=== PATIENT | female | born 1935 | race Caucasian/White ===

== ENCOUNTER 2018-11-13 14:30 | Inpatient (IN) ==
[2018-11-13 15:38] LABS: Basophils % 0.5 % (0.0-0.8); Eosinophils # 0.3 10*3/uL (0.0-0.87); Eosinophils % 3.6 % (0.00-10.9); Hemoglobin 10.4 GM/DL (12.0-16.0); Immature Granulocytes % 0.5 %; Immature Granulocytes Absolute 0.04 #; Lymphocytes % 12.2 % (21.3-54.2); Mean Corpuscular HGB Conc 32.5 GM/DL (32-36); Mean Corpuscular Volume 102.9 FL (87-102); Mean Platelet Volume 10.1 FL (9.6-12.0); Monocytes % 4.1 % (1.7-12.7); Neutrophils % 79.1 % (38.7-73.9); Platelet Count 205 T/CUMM (130-400); Red Blood Count 3.11 MC/CUMM (3.8-5.5); Red Cell Distribution Width 11.9 % (9.3-17.3); White Blood Count 8.3 T/CUMM (4-12)
[2018-11-13 15:48] LABS: Apearance,Urine CLEAR (Clear); Bacteria,Urine Many /HPF (Few); Bilirubin,Urine Negative (Negative); Blood, Urine Small mg/dL (Negative); Glucose,Urine (UA) Negative (Negative); Hyaline Casts,Urine 1 /LPF (0-3); Ketones,Urine Negative (Negative); Mucus,Urine Occasional /LPF (Occasional); Nitrite,Urine Positive (Negative); Protein,Urine Negative; RBC,Urine 4 /HPF (0-4); Squamous Epithelial Cell,Urine Occasional /HPF (0-10); Urine Color Yellow (Yellow); Urine Specific Gravity 1.014 (1.001-1.035); Urine Urobilinogen < 2.0 EU/DL (0.2-1.0); WBC,Urine 30 /HPF (0-6)
[2018-11-13 15:55] LABS: Alanine Aminotransferase 11 U/L (13-56); Albumin 2.8 G/DL (3.4-5.0); Alkaline Phosphatase 108 U/L (45-117); Aspartate Amino Transferase 15 U/L (0-37); Bilirubin,Total < 0.39 MG/DL (0.2-1.0); Blood Urea Nitrogen 23 MG/DL (7-18); Glucose 112 MG/DL (74-106); Osmolality,Calculated 281.5 MOS/KG (273-304); Total Protein 6.3 G/DL (6.4-8.3)
[2018-11-13] MEDS ORDERED: ACETAMINOPHEN 325 MG TABLET PO PRN (15:59)
[2018-11-13] MEDS ORDERED: ONDANSETRON 4 MG/2 ML VIAL IV PRN (15:59)
[2018-11-13] MEDS ORDERED: PIPERACILLIN/TAZOBACTAM 3,375 MG in SODIUM CHLORIDE 0.9% 100 ML IV STA (16:02)
[2018-11-13] MEDS ORDERED: TEMAZEPAM 15 MG CAPSULE PO PRN (16:22)
[2018-11-13] MEDS: SODIUM CHLORIDE 0.9% 1,000 ML IV SCH (16:25)
[2018-11-13] MEDS: rOPINIRole 0.25 MG TABLET PO SCH (20:47)
[2018-11-13] MEDS: levETIRAcetam 500 MG TABLET PO SCH (20:47)
[2018-11-13] MEDS: QUEtiapine 25 MG TABLET PO SCH (20:47)
[2018-11-13] MEDS: DOCUSATE SODIUM 100 MG CAPSULE PO SCH (20:47)
[2018-11-13] MEDS: MEMANTINE 10 MG TABLET PO SCH (20:47)
[2018-11-13] MEDS: PHENYTOIN ER 100 MG CAPSULE PO SCH (20:47)
[2018-11-13] MEDS: SIMVASTATIN 20 MG TABLET PO SCH (20:47)
[2018-11-13] MEDS: GABAPENTIN 100 MG CAPSULE PO SCH (20:47)
[2018-11-14] MEDS: PIPERACILLIN/TAZOBACTAM 3,375 MG in SODIUM CHLORIDE 0.9% 100 ML IV SCH ×3 (01:08→16:53)
[2018-11-14] MEDS: SODIUM CHLORIDE 0.9% 1,000 ML IV SCH ×4 (02:32→16:53)
[2018-11-14] MEDS: LEVOTHYROXINE 100 MCG TABLET PO SCH (06:13)
[2018-11-14] MEDS: VENLAFAXINE XR 37.5 MG CAPSULE PO SCH (09:06)
[2018-11-14] MEDS: PANTOPRAZOLE 40 MG TABLET PO SCH (09:07)
[2018-11-14] MEDS: DOCUSATE SODIUM 100 MG CAPSULE PO SCH ×2 (09:07→23:05)
[2018-11-14] MEDS: PHENYTOIN ER 100 MG CAPSULE PO SCH ×3 (09:07→23:06)
[2018-11-14] MEDS: LOSARTAN 50 MG TABLET PO SCH (09:07)
[2018-11-14] MEDS: QUEtiapine 25 MG TABLET PO SCH ×2 (09:07→23:07)
[2018-11-14] MEDS: GABAPENTIN 100 MG CAPSULE PO SCH ×2 (09:07→23:06)
[2018-11-14] MEDS: levETIRAcetam 500 MG TABLET PO SCH ×2 (09:07→23:06)
[2018-11-14] MEDS: CLOPIDOGREL 75 MG TABLET PO SCH (09:07)
[2018-11-14] MEDS: ESTROGENS (CONJ) 0.625 MG TABLET PO SCH (09:07)
[2018-11-14] MEDS: MEMANTINE 10 MG TABLET PO SCH ×2 (09:07→23:06)
[2018-11-14] MEDS ORDERED: ZIPRASIDONE 20 MG/1 ML VIAL IM ONE (21:21)
[2018-11-14] MEDS: rOPINIRole 0.25 MG TABLET PO SCH (23:06)
[2018-11-14] MEDS: SIMVASTATIN 20 MG TABLET PO SCH (23:07)
[2018-11-15] MEDS: PIPERACILLIN/TAZOBACTAM 3,375 MG in SODIUM CHLORIDE 0.9% 100 ML IV SCH ×3 (00:06→17:09)
[2018-11-15] MEDS: SODIUM CHLORIDE 0.9% 1,000 ML IV SCH ×3 (00:06→17:09)
[2018-11-15] MEDS: VENLAFAXINE XR 37.5 MG CAPSULE PO SCH (09:30)
[2018-11-15] MEDS: LOSARTAN 50 MG TABLET PO SCH (09:31)
[2018-11-15] MEDS: DOCUSATE SODIUM 100 MG CAPSULE PO SCH ×2 (09:31→21:07)
[2018-11-15] MEDS: GABAPENTIN 100 MG CAPSULE PO SCH ×2 (09:31→21:07)
[2018-11-15] MEDS: QUEtiapine 25 MG TABLET PO SCH ×2 (09:31→21:06)
[2018-11-15] MEDS: CLOPIDOGREL 75 MG TABLET PO SCH (09:31)
[2018-11-15] MEDS: levETIRAcetam 500 MG TABLET PO SCH ×2 (09:31→21:08)
[2018-11-15] MEDS: PANTOPRAZOLE 40 MG TABLET PO SCH (09:31)
[2018-11-15] MEDS: MEMANTINE 10 MG TABLET PO SCH ×2 (09:31→21:07)
[2018-11-15] MEDS: PHENYTOIN ER 100 MG CAPSULE PO SCH ×3 (09:31→21:07)
[2018-11-15] MEDS: ESTROGENS (CONJ) 0.625 MG TABLET PO SCH (09:32)
[2018-11-15] MEDS: LEVOTHYROXINE 100 MCG TABLET PO SCH (09:32)
[2018-11-15] MEDS: rOPINIRole 0.25 MG TABLET PO SCH (21:06)
[2018-11-15] MEDS: SIMVASTATIN 20 MG TABLET PO SCH (21:07)
[2018-11-16] MEDS: PIPERACILLIN/TAZOBACTAM 3,375 MG in SODIUM CHLORIDE 0.9% 100 ML IV SCH ×3 (01:15→16:06)
[2018-11-16] MEDS: SODIUM CHLORIDE 0.9% 1,000 ML IV SCH ×3 (01:51→22:10)
[2018-11-16] MEDS: ZIPRASIDONE 20 MG/1 ML VIAL IM PRN (04:00)
[2018-11-16] MEDS: LEVOTHYROXINE 100 MCG TABLET PO SCH (09:04)
[2018-11-16] MEDS: GABAPENTIN 100 MG CAPSULE PO SCH (09:05)
[2018-11-16] MEDS: VENLAFAXINE XR 37.5 MG CAPSULE PO SCH (09:05)
[2018-11-16] MEDS: MEMANTINE 10 MG TABLET PO SCH (09:05)
[2018-11-16] MEDS: ESTROGENS (CONJ) 0.625 MG TABLET PO SCH (09:05)
[2018-11-16] MEDS: QUEtiapine 25 MG TABLET PO SCH (09:05)
[2018-11-16] MEDS: CLOPIDOGREL 75 MG TABLET PO SCH (09:05)
[2018-11-16] MEDS: levETIRAcetam 500 MG TABLET PO SCH (09:06)
[2018-11-16] MEDS: PHENYTOIN ER 100 MG CAPSULE PO SCH ×2 (09:06→16:05)
[2018-11-16] MEDS: DOCUSATE SODIUM 100 MG CAPSULE PO SCH (09:06)
[2018-11-16] MEDS: LOSARTAN 50 MG TABLET PO SCH (09:06)
[2018-11-16] MEDS: PANTOPRAZOLE 40 MG TABLET PO SCH (09:06)
[2018-11-17] MEDS: PIPERACILLIN/TAZOBACTAM 3,375 MG in SODIUM CHLORIDE 0.9% 100 ML IV SCH ×3 (00:15→15:43)
[2018-11-17] MEDS: PHENYTOIN ER 100 MG CAPSULE PO SCH ×3 (02:29→15:43)
[2018-11-17] MEDS: DOCUSATE SODIUM 100 MG CAPSULE PO SCH ×2 (02:29→08:12)
[2018-11-17] MEDS: rOPINIRole 0.25 MG TABLET PO SCH (02:30)
[2018-11-17] MEDS: levETIRAcetam 500 MG TABLET PO SCH ×2 (02:30→08:12)
[2018-11-17] MEDS: GABAPENTIN 100 MG CAPSULE PO SCH ×2 (02:30→08:12)
[2018-11-17] MEDS: QUEtiapine 25 MG TABLET PO SCH ×2 (02:30→08:13)
[2018-11-17] MEDS: MEMANTINE 10 MG TABLET PO SCH ×2 (02:30→08:12)
[2018-11-17] MEDS: SIMVASTATIN 20 MG TABLET PO SCH (02:31)
[2018-11-17] MEDS: LEVOTHYROXINE 100 MCG TABLET PO SCH (06:30)
[2018-11-17] MEDS: ZIPRASIDONE 20 MG/1 ML VIAL IM PRN ×2 (08:11→18:36)
[2018-11-17] MEDS: VENLAFAXINE XR 37.5 MG CAPSULE PO SCH (08:12)
[2018-11-17] MEDS: LOSARTAN 50 MG TABLET PO SCH (08:12)
[2018-11-17] MEDS: CLOPIDOGREL 75 MG TABLET PO SCH (08:13)
[2018-11-17] MEDS: PANTOPRAZOLE 40 MG TABLET PO SCH (08:13)
[2018-11-17] MEDS: ESTROGENS (CONJ) 0.625 MG TABLET PO SCH (08:13)
[2018-11-17] MEDS: SODIUM CHLORIDE 0.9% 1,000 ML IV SCH ×3 (15:31→15:43)
[2018-11-18] MEDS: DOCUSATE SODIUM 100 MG CAPSULE PO SCH (00:22)
[2018-11-18] MEDS: PHENYTOIN ER 100 MG CAPSULE PO SCH (00:22)
[2018-11-18] MEDS: levETIRAcetam 500 MG TABLET PO SCH (00:23)
[2018-11-18] MEDS: MEMANTINE 10 MG TABLET PO SCH (00:23)
[2018-11-18] MEDS: rOPINIRole 0.25 MG TABLET PO SCH (00:23)
[2018-11-18] MEDS: GABAPENTIN 100 MG CAPSULE PO SCH (00:23)
[2018-11-18] MEDS: QUEtiapine 25 MG TABLET PO SCH (00:23)
[2018-11-18] MEDS: SIMVASTATIN 20 MG TABLET PO SCH (00:24)
[2018-11-18] MEDS: PIPERACILLIN/TAZOBACTAM 3,375 MG in SODIUM CHLORIDE 0.9% 100 ML IV SCH (01:20)
[2018-11-18] MEDS: ZIPRASIDONE 20 MG/1 ML VIAL IM PRN (02:15)
[2018-11-18 07:54] VITALS: BP 183/92
== END 2018-11-18 11:40 | disposition home health service (06) | DRG 690 ==
LOC: EDUNIT# → EDBD → N.ED 14:30 → N.EDINP 14:30 → N.TELES 16:52
PROVIDERS: ADMIT Family Medicine; ATTEND Family Medicine

== ENCOUNTER 2019-05-28 19:04 | Inpatient (IN) ==
[2019-05-28] MEDS ORDERED: SODIUM CHLORIDE 0.9% 500 ML IV STA (19:27)
[2019-05-28 19:36] LABS: Basophils % 0.8 % (0.0-0.8); Eosinophils # 0.2 10*3/uL (0.0-0.87); Eosinophils % 4.3 % (0.00-10.9); Hematocrit 30.2 VOL% (35.7-47.0); Immature Granulocytes % 0.2 %; Immature Granulocytes Absolute 0.01 #; Lymphocytes # 1.3 10*3/uL (1.4-4.0); Lymphocytes % 26.7 % (21.3-54.2); Mean Corpuscular HGB Conc 33.1 GM/DL (32-36); Mean Corpuscular Volume 106.7 FL (87-102); Mean Platelet Volume 10.2 FL (9.6-12.0); Monocytes % 9.1 % (1.7-12.7); Neutrophils % 58.9 % (38.7-73.9); Platelet Count 214 T/CUMM (130-400); Red Blood Count 2.83 MC/CUMM (3.8-5.5); Red Cell Distribution Width 12.4 % (9.3-17.3); White Blood Count 4.9 T/CUMM (4-12)
[2019-05-28 19:42] LABS: INR 0.9; PT Patient Result 10.2 SECS (9.6-12.2); Partial Thromboplastin Time 24.2 SECS (20.8-36.0)
[2019-05-28 19:52] LABS: Alanine Aminotransferase 12 U/L (13-56); Albumin 2.8 G/DL (3.4-5.0); Alkaline Phosphatase 78 U/L (45-117); Aspartate Amino Transferase 15 U/L (0-37); Bilirubin,Total < 0.39 MG/DL (0.2-1.0); Blood Urea Nitrogen 29 MG/DL (7-18); Calcium 8.1 MG/DL (8.5-10.1); Estimated Glom Filtration Rate 33 ML/MIN; Glucose 109 MG/DL (74-106); Osmolality,Calculated 281.7 MOS/KG (273-304); Total Protein 6.6 G/DL (6.4-8.3); Troponin I < 0.015 NG/ML (0.00-0.045)
[2019-05-28 19:55] LABS: Apearance,Urine Slightly Hazy (Clear); Bilirubin,Urine Negative (Negative); Blood, Urine Negative (Negative); Glucose,Urine (UA) Negative (Negative); Hyaline Casts,Urine 3 /LPF (0-3); Ketones,Urine Negative (Negative); Mucus,Urine Occasional /LPF (Occasional); Nitrite,Urine Negative (Negative); Protein,Urine Negative; RBC,Urine 1 /HPF (0-4); Squamous Epithelial Cell,Urine Occasional /HPF (0-10); Urine Color Yellow (Yellow); Urine Specific Gravity 1.019 (1.001-1.035); Urine Urobilinogen < 2.0 EU/DL (0.2-1.0); WBC,Urine 38 /HPF (0-6)
[2019-05-28 20:17] LABS: Barbiturates Screen,Urine Negative (Negative); Benzodiazepines Screen,Urine Positive (Negative); Cannabinoid Screen,Urine Negative (Negative); Opiate Screen,Urine Negative (Negative); Phencyclidine Screen,Urine Negative (Negative)
[2019-05-28] MEDS ORDERED: ONDANSETRON 4 MG/2 ML VIAL IV PRN (20:23)
[2019-05-28] MEDS ORDERED: LEVOFLOXACIN INJ 750 MG in PREMIX 1 EACH IV STA (20:26)
[2019-05-28] MEDS ORDERED: LEVOFLOXACIN INJ 750 MG in PREMIX 1 EACH IV SCH (20:30)
[2019-05-29] MEDS: SODIUM CHLORIDE 0.45% 1,000 ML IV SCH ×4 (00:01→21:03)
[2019-05-29] MEDS ORDERED: INFLUENZA VIRUS VACCINE 0.5 ML SYRINGE IM ONE (01:25)
[2019-05-29] MEDS ORDERED: ACETAMINOPHEN 325 MG TABLET PO PRN (07:47)
[2019-05-29] MEDS: VENLAFAXINE XR 75 MG CAPSULE PO SCH (10:35)
[2019-05-29] MEDS: PIPERACILLIN/TAZOBACTAM 3,375 MG in SODIUM CHLORIDE 0.9% 100 ML IV SCH ×3 (10:36→23:02)
[2019-05-29] MEDS: PHENYTOIN ER 100 MG CAPSULE PO SCH ×2 (12:16→21:03)
[2019-05-29] MEDS: DOCUSATE SODIUM 100 MG CAPSULE PO PRN (12:16)
[2019-05-29] MEDS: LOSARTAN 50 MG TABLET PO SCH (12:17)
[2019-05-29] MEDS: QUEtiapine 25 MG TABLET PO SCH ×2 (12:17→21:04)
[2019-05-29] MEDS: MEMANTINE 10 MG TABLET PO SCH ×2 (12:18→21:03)
[2019-05-29] MEDS: PANTOPRAZOLE 40 MG TABLET PO SCH (12:18)
[2019-05-29] MEDS: hydroCHLOROthiazide 12.5 MG CAPSULE PO SCH (12:18)
[2019-05-29] MEDS: levETIRAcetam 500 MG TABLET PO SCH ×2 (12:18→21:04)
[2019-05-29] MEDS: ESTROGENS (CONJ) 0.625 MG TABLET PO SCH (12:21)
[2019-05-29] MEDS: rOPINIRole 0.25 MG TABLET PO SCH (21:03)
[2019-05-29] MEDS: SIMVASTATIN 20 MG TABLET PO SCH (21:03)
[2019-05-29] MEDS: CLOPIDOGREL 75 MG TABLET PO SCH (21:03)
[2019-05-29] MEDS: GABAPENTIN 100 MG CAPSULE PO SCH (21:04)
[2019-05-29] MEDS: TEMAZEPAM 15 MG CAPSULE PO PRN (23:32)
[2019-05-30] MEDS: SODIUM CHLORIDE 0.45% 1,000 ML IV SCH ×2 (05:34→17:04)
[2019-05-30] MEDS: LEVOTHYROXINE 100 MCG TABLET PO SCH (05:53)
[2019-05-30] MEDS: VENLAFAXINE XR 75 MG CAPSULE PO SCH (08:28)
[2019-05-30] MEDS: ESTROGENS (CONJ) 0.625 MG TABLET PO SCH (08:28)
[2019-05-30] MEDS: MEMANTINE 10 MG TABLET PO SCH ×2 (08:28→21:45)
[2019-05-30] MEDS: PANTOPRAZOLE 40 MG TABLET PO SCH (08:28)
[2019-05-30] MEDS: PHENYTOIN ER 100 MG CAPSULE PO SCH ×2 (08:28→21:45)
[2019-05-30] MEDS: levETIRAcetam 500 MG TABLET PO SCH ×2 (08:29→21:45)
[2019-05-30] MEDS: LOSARTAN 50 MG TABLET PO SCH (08:29)
[2019-05-30] MEDS: hydroCHLOROthiazide 12.5 MG CAPSULE PO SCH (08:29)
[2019-05-30] MEDS: QUEtiapine 25 MG TABLET PO SCH ×2 (08:29→21:45)
[2019-05-30] MEDS: PIPERACILLIN/TAZOBACTAM 3,375 MG in SODIUM CHLORIDE 0.9% 100 ML IV SCH ×2 (08:30→17:07)
[2019-05-30] MEDS ORDERED: PHENYTOIN ER 100 MG CAPSULE PO ONE (09:00)
[2019-05-30] MEDS: VANCOMYCIN INJ 1,000 MG in SODIUM CHLORIDE 0.9% 250 ML IV SCH (12:33)
[2019-05-30] MEDS ORDERED: LEVOFLOXACIN INJ 750 MG in PREMIX 1 EACH IV SCH (21:00)
[2019-05-30] MEDS: GABAPENTIN 100 MG CAPSULE PO SCH (21:44)
[2019-05-30] MEDS: rOPINIRole 0.25 MG TABLET PO SCH (21:45)
[2019-05-30] MEDS: SIMVASTATIN 20 MG TABLET PO SCH (21:45)
[2019-05-30] MEDS: TEMAZEPAM 15 MG CAPSULE PO PRN (21:45)
[2019-05-30] MEDS: CLOPIDOGREL 75 MG TABLET PO SCH (21:45)
[2019-05-31] MEDS: PIPERACILLIN/TAZOBACTAM 3,375 MG in SODIUM CHLORIDE 0.9% 100 ML IV SCH ×3 (01:50→17:05)
[2019-05-31] MEDS: ESTROGENS (CONJ) 0.625 MG TABLET PO SCH (09:03)
[2019-05-31] MEDS: levETIRAcetam 500 MG TABLET PO SCH ×3 (09:03→22:23)
[2019-05-31] MEDS: VENLAFAXINE XR 75 MG CAPSULE PO SCH (09:03)
[2019-05-31] MEDS: PANTOPRAZOLE 40 MG TABLET PO SCH (09:03)
[2019-05-31] MEDS: hydroCHLOROthiazide 12.5 MG CAPSULE PO SCH (09:03)
[2019-05-31] MEDS: PHENYTOIN ER 100 MG CAPSULE PO SCH ×3 (09:03→22:23)
[2019-05-31] MEDS: MEMANTINE 10 MG TABLET PO SCH ×3 (09:03→22:23)
[2019-05-31] MEDS: LOSARTAN 50 MG TABLET PO SCH (09:04)
[2019-05-31] MEDS: LEVOTHYROXINE 100 MCG TABLET PO SCH (09:04)
[2019-05-31] MEDS: QUEtiapine 25 MG TABLET PO SCH ×2 (09:04→22:23)
[2019-05-31] MEDS: VANCOMYCIN INJ 1,000 MG in SODIUM CHLORIDE 0.9% 250 ML IV SCH (12:40)
[2019-05-31] MEDS: SODIUM CHLORIDE 0.45% 1,000 ML IV SCH ×2 (12:42→17:24)
[2019-05-31] MEDS: rOPINIRole 0.25 MG TABLET PO SCH ×2 (22:21→22:23)
[2019-05-31] MEDS: SIMVASTATIN 20 MG TABLET PO SCH ×2 (22:21→22:23)
[2019-05-31] MEDS: GABAPENTIN 100 MG CAPSULE PO SCH ×2 (22:21→22:23)
[2019-05-31] MEDS: CLOPIDOGREL 75 MG TABLET PO SCH ×2 (22:21→22:23)
[2019-06-01] MEDS: PIPERACILLIN/TAZOBACTAM 3,375 MG in SODIUM CHLORIDE 0.9% 100 ML IV SCH ×3 (00:40→17:27)
[2019-06-01 06:00] LABS: Basophils # 0.1 10*3/uL (0.0-0.2); Eosinophils # 0.3 10*3/uL (0.0-0.87); Eosinophils % 5.6 % (0.00-10.9); Hematocrit 29.2 VOL% (35.7-47.0); Hemoglobin 9.7 GM/DL (12.0-16.0); Immature Granulocytes % 0.2 %; Immature Granulocytes Absolute 0.01 #; Lymphocytes # 1.3 10*3/uL (1.4-4.0); Lymphocytes % 21.9 % (21.3-54.2); Mean Corpuscular HGB Conc 33.2 GM/DL (32-36); Mean Platelet Volume 10.6 FL (9.6-12.0); Monocytes % 6.5 % (1.7-12.7); Neutrophils % 64.8 % (38.7-73.9); Platelet Count 166 T/CUMM (130-400); Red Blood Count 2.73 MC/CUMM (3.8-5.5); Red Cell Distribution Width 12.4 % (9.3-17.3); White Blood Count 5.7 T/CUMM (4-12)
[2019-06-01 06:18] LABS: Osmolality,Calculated 279.3 MOS/KG (273-304)
[2019-06-01] MEDS: SODIUM CHLORIDE 0.45% 1,000 ML IV SCH ×2 (08:37→08:38)
[2019-06-01] MEDS: LEVOTHYROXINE 100 MCG TABLET PO SCH (08:38)
[2019-06-01] MEDS: hydroCHLOROthiazide 12.5 MG CAPSULE PO SCH (09:32)
[2019-06-01] MEDS: PHENYTOIN ER 100 MG CAPSULE PO SCH ×2 (09:32→21:09)
[2019-06-01] MEDS: VENLAFAXINE XR 75 MG CAPSULE PO SCH (09:32)
[2019-06-01] MEDS: QUEtiapine 25 MG TABLET PO SCH ×2 (09:32→21:09)
[2019-06-01] MEDS: MEMANTINE 10 MG TABLET PO SCH ×2 (09:33→21:09)
[2019-06-01] MEDS: LOSARTAN 50 MG TABLET PO SCH (09:33)
[2019-06-01] MEDS: ESTROGENS (CONJ) 0.625 MG TABLET PO SCH (09:33)
[2019-06-01] MEDS: levETIRAcetam 500 MG TABLET PO SCH ×2 (09:33→21:09)
[2019-06-01] MEDS: PANTOPRAZOLE 40 MG TABLET PO SCH (09:33)
[2019-06-01] MEDS ORDERED: MAGNESIUM SULF RIDER 2 GM in PREMIX 1 EACH IV ONE (11:18)
[2019-06-01] MEDS: VANCOMYCIN INJ 1,000 MG in SODIUM CHLORIDE 0.9% 250 ML IV SCH (14:31)
[2019-06-01] MEDS: rOPINIRole 0.25 MG TABLET PO SCH (21:08)
[2019-06-01] MEDS: CLOPIDOGREL 75 MG TABLET PO SCH (21:09)
[2019-06-01] MEDS: GABAPENTIN 100 MG CAPSULE PO SCH (21:09)
[2019-06-01] MEDS: SIMVASTATIN 20 MG TABLET PO SCH (21:09)
[2019-06-02] MEDS: PIPERACILLIN/TAZOBACTAM 3,375 MG in SODIUM CHLORIDE 0.9% 100 ML IV SCH ×2 (00:32→08:29)
[2019-06-02] MEDS: DOCUSATE SODIUM 100 MG CAPSULE PO PRN (08:30)
[2019-06-02] MEDS: levETIRAcetam 500 MG TABLET PO SCH (08:30)
[2019-06-02] MEDS: PHENYTOIN ER 100 MG CAPSULE PO SCH (08:30)
[2019-06-02] MEDS: LEVOTHYROXINE 100 MCG TABLET PO SCH (08:30)
[2019-06-02] MEDS: ESTROGENS (CONJ) 0.625 MG TABLET PO SCH (08:30)
[2019-06-02] MEDS: hydroCHLOROthiazide 12.5 MG CAPSULE PO SCH (08:30)
[2019-06-02] MEDS: PANTOPRAZOLE 40 MG TABLET PO SCH (08:30)
[2019-06-02] MEDS: VENLAFAXINE XR 75 MG CAPSULE PO SCH (08:30)
[2019-06-02] MEDS: QUEtiapine 25 MG TABLET PO SCH (08:30)
[2019-06-02] MEDS: LOSARTAN 50 MG TABLET PO SCH (08:30)
[2019-06-02] MEDS: MEMANTINE 10 MG TABLET PO SCH (08:30)
[2019-06-02 12:17] VITALS: BP 144/84
[2019-06-02] MEDS: VANCOMYCIN INJ 1,000 MG in SODIUM CHLORIDE 0.9% 250 ML IV SCH (12:18)
== END 2019-06-02 12:15 | disposition home health service (06) | DRG 690 ==
LOC: EDUNIT# → EDBD → N.ED 19:04 → N.EDINP 20:21 → N.5E 20:57
PROVIDERS: ADMIT Family Medicine; ATTEND Family Medicine

== ENCOUNTER 2019-08-10 11:32 | Inpatient (IN) ==
[2019-08-10] MEDS ORDERED: SODIUM CHLORIDE 0.9% 1,000 ML IV STA (12:02)
[2019-08-10 13:01] LABS: Basophils % 0.5 % (0.0-0.8); Eosinophils % 1.1 % (0.00-10.9); Hematocrit 32.6 VOL% (35.7-47.0); Immature Granulocytes % 0.5 %; Immature Granulocytes Absolute 0.02 #; Lymphocytes # 1.1 10*3/uL (1.4-4.0); Lymphocytes % 29.2 % (21.3-54.2); Mean Corpuscular HGB Conc 33.7 GM/DL (32-36); Mean Corpuscular Volume 104.2 FL (87-102); Monocytes % 5.7 % (1.7-12.7); Platelet Count 133 T/CUMM (130-400); Red Blood Count 3.13 MC/CUMM (3.8-5.5); Red Cell Distribution Width 13.1 % (9.3-17.3); White Blood Count 3.7 T/CUMM (4-12)
[2019-08-10 13:21] LABS: Alanine Aminotransferase 17 U/L (13-56); Albumin 2.6 G/DL (3.4-5.0); Alkaline Phosphatase 74 U/L (45-117); Aspartate Amino Transferase 31 U/L (0-37); Bilirubin,Total < 0.39 MG/DL (0.2-1.0); Blood Urea Nitrogen 26 MG/DL (7-18); Calcium 7.9 MG/DL (8.5-10.1); Estimated Glom Filtration Rate 37 ML/MIN; Glucose 97 MG/DL (74-106); Osmolality,Calculated 283.4 MOS/KG (273-304); Thyroid Stimulating Hormone 0.186 uIU/ml (0.358-3.74); Total Protein 6.8 G/DL (6.4-8.3)
[2019-08-10] MEDS ORDERED: MAGNESIUM SULF RIDER 2 GM in PREMIX 1 EACH IV ONE (13:28)
[2019-08-10] MEDS ORDERED: cefTRIAXone 1,000 MG in SODIUM CHLORIDE 0.9% 100 ML IV STA (13:29)
[2019-08-10 13:30] LABS: Apearance,Urine CLOUDY (Clear); Bacteria,Urine Many /HPF (Few); Bilirubin,Urine Negative (Negative); Blood, Urine Moderate mg/dL (Negative); Glucose,Urine (UA) Negative (Negative); Ketones,Urine Negative (Negative); Mucus,Urine Many /LPF (Occasional); Nitrite,Urine Negative (Negative); Protein,Urine 100 MG/DL; RBC,Urine 29 /HPF (0-4); Squamous Epithelial Cell,Urine Few /HPF (0-10); Urine Color Yellow (Yellow); Urine Specific Gravity 1.026 (1.001-1.035); Urine Urobilinogen < 2.0 EU/DL (0.2-1.0); WBC,Urine 2108 /HPF (0-6)
[2019-08-10] MEDS ORDERED: ACETAMINOPHEN 325 MG TABLET PO PRN (13:55)
[2019-08-10] MEDS ORDERED: ONDANSETRON 4 MG/2 ML VIAL IV PRN (13:55)
[2019-08-10] MEDS ORDERED: cefTRIAXone 1,000 MG in SYRINGE 1 EACH IV SCH (14:00)
[2019-08-10] MEDS ORDERED: HALOPERIDOL 5 MG/ML AMP IM STA (14:04)
[2019-08-10] MEDS: SODIUM CHLORIDE 0.9% 1,000 ML IV SCH ×2 (15:41→23:37)
[2019-08-10] MEDS: DOCUSATE SODIUM 100 MG CAPSULE PO SCH (20:52)
[2019-08-10] MEDS: QUEtiapine 25 MG TABLET PO SCH (20:53)
[2019-08-10] MEDS: TEMAZEPAM 15 MG CAPSULE PO SCH (20:53)
[2019-08-10] MEDS: METHENAMINE HIPPURATE 1 GM TABLET PO SCH (20:53)
[2019-08-10] MEDS: rOPINIRole 0.25 MG TABLET PO SCH (20:53)
[2019-08-10] MEDS: levETIRAcetam 500 MG TABLET PO SCH (20:53)
[2019-08-10] MEDS ORDERED: PHENYTOIN ER 100 MG CAPSULE PO SCH (21:00)
[2019-08-10] MEDS: SIMVASTATIN 20 MG TABLET PO SCH (21:05)
[2019-08-11 05:42] LABS: Basophils % 0.3 % (0.0-0.8); Eosinophils % 1.3 % (0.00-10.9); Hematocrit 29.3 VOL% (35.7-47.0); Hemoglobin 9.7 GM/DL (12.0-16.0); Immature Granulocytes % 0.3 %; Immature Granulocytes Absolute 0.01 #; Lymphocytes % 32.3 % (21.3-54.2); Mean Corpuscular HGB Conc 33.1 GM/DL (32-36); Mean Corpuscular Volume 104.6 FL (87-102); Monocytes % 5.7 % (1.7-12.7); Neutrophils % 60.1 % (38.7-73.9); Platelet Count 106 T/CUMM (130-400); Red Cell Distribution Width 13.2 % (9.3-17.3)
[2019-08-11 06:08] LABS: Calcium 7.1 MG/DL (8.5-10.1); Osmolality,Calculated 282.3 MOS/KG (273-304)
[2019-08-11] MEDS: SODIUM CHLORIDE 0.9% 1,000 ML IV SCH ×2 (07:18→21:41)
[2019-08-11] MEDS ORDERED: MAGNESIUM SULF RIDER 2 GM in PREMIX 1 EACH IV PRN (08:54)
[2019-08-11] MEDS ORDERED: MAGNESIUM SULF RIDER 4 GM in PREMIX 1 EACH IV PRN (08:54)
[2019-08-11] MEDS: VENLAFAXINE XR 75 MG CAPSULE PO SCH (08:57)
[2019-08-11] MEDS: METHENAMINE HIPPURATE 1 GM TABLET PO SCH ×2 (08:57→21:11)
[2019-08-11] MEDS: LOSARTAN 50 MG TABLET PO SCH (08:58)
[2019-08-11] MEDS: GABAPENTIN 100 MG CAPSULE PO SCH (08:58)
[2019-08-11] MEDS: ESTROGENS (CONJ) 0.625 MG TABLET PO SCH (08:58)
[2019-08-11] MEDS: PHENYTOIN ER 100 MG CAPSULE PO SCH ×2 (08:58→21:11)
[2019-08-11] MEDS: DOCUSATE SODIUM 100 MG CAPSULE PO SCH ×2 (08:58→21:11)
[2019-08-11] MEDS: MEMANTINE 10 MG TABLET PO SCH ×2 (08:59→21:11)
[2019-08-11] MEDS: levETIRAcetam 500 MG TABLET PO SCH ×2 (08:59→21:11)
[2019-08-11] MEDS: LEVOTHYROXINE 100 MCG TABLET PO SCH (08:59)
[2019-08-11] MEDS ORDERED: cefTRIAXone 1,000 MG in SYRINGE 1 EACH IV SCH (09:00)
[2019-08-11] MEDS: PANTOPRAZOLE 40 MG TABLET PO SCH (09:00)
[2019-08-11] MEDS: QUEtiapine 25 MG TABLET PO SCH ×2 (09:21→21:12)
[2019-08-11] MEDS: POTASSIUM CHLORIDE RIDER 10 MEQ in PREMIX 1 EACH IV PRN ×5 (09:26→20:42)
[2019-08-11] MEDS: TEMAZEPAM 15 MG CAPSULE PO SCH (21:12)
[2019-08-11] MEDS: rOPINIRole 0.25 MG TABLET PO SCH (21:12)
[2019-08-11] MEDS: SIMVASTATIN 20 MG TABLET PO SCH (21:12)
[2019-08-12] MEDS: SODIUM CHLORIDE 0.9% 1,000 ML IV SCH ×2 (04:52→14:51)
[2019-08-12 06:08] LABS: Calcium 7.1 MG/DL (8.5-10.1); Osmolality,Calculated 282.3 MOS/KG (273-304)
[2019-08-12] MEDS: PIPERACILLIN/TAZOBACTAM 3,375 MG in SODIUM CHLORIDE 0.9% 100 ML IV SCH ×3 (08:57→23:03)
[2019-08-12] MEDS: PHENYTOIN ER 100 MG CAPSULE PO SCH ×2 (08:59→22:29)
[2019-08-12] MEDS: QUEtiapine 25 MG TABLET PO SCH ×2 (08:59→22:29)
[2019-08-12] MEDS: MEMANTINE 10 MG TABLET PO SCH ×2 (08:59→22:30)
[2019-08-12] MEDS: LEVOTHYROXINE 100 MCG TABLET PO SCH (09:02)
[2019-08-12] MEDS: VENLAFAXINE XR 75 MG CAPSULE PO SCH (09:02)
[2019-08-12] MEDS: METHENAMINE HIPPURATE 1 GM TABLET PO SCH ×2 (09:02→22:28)
[2019-08-12] MEDS: ESTROGENS (CONJ) 0.625 MG TABLET PO SCH (09:06)
[2019-08-12] MEDS: levETIRAcetam 500 MG TABLET PO SCH ×2 (09:06→22:28)
[2019-08-12] MEDS: LOSARTAN 50 MG TABLET PO SCH (09:08)
[2019-08-12] MEDS: DOCUSATE SODIUM 100 MG CAPSULE PO SCH ×2 (09:08→22:28)
[2019-08-12] MEDS: PANTOPRAZOLE 40 MG TABLET PO SCH (09:08)
[2019-08-12] MEDS: GABAPENTIN 100 MG CAPSULE PO SCH (09:08)
[2019-08-12] MEDS: TEMAZEPAM 15 MG CAPSULE PO SCH (22:28)
[2019-08-12] MEDS: rOPINIRole 0.25 MG TABLET PO SCH (22:29)
[2019-08-12] MEDS: SIMVASTATIN 20 MG TABLET PO SCH (22:30)
[2019-08-13] MEDS: LEVOTHYROXINE 100 MCG TABLET PO SCH (10:07)
[2019-08-13] MEDS: VENLAFAXINE XR 75 MG CAPSULE PO SCH (10:07)
[2019-08-13] MEDS: PHENYTOIN ER 100 MG CAPSULE PO SCH (10:08)
[2019-08-13] MEDS: ESTROGENS (CONJ) 0.625 MG TABLET PO SCH (10:08)
[2019-08-13] MEDS: PANTOPRAZOLE 40 MG TABLET PO SCH (10:09)
[2019-08-13] MEDS: QUEtiapine 25 MG TABLET PO SCH (10:09)
[2019-08-13] MEDS: levETIRAcetam 500 MG TABLET PO SCH (10:09)
[2019-08-13] MEDS: DOCUSATE SODIUM 100 MG CAPSULE PO SCH (10:09)
[2019-08-13] MEDS: GABAPENTIN 100 MG CAPSULE PO SCH (10:09)
[2019-08-13] MEDS: SODIUM CHLORIDE 0.9% 1,000 ML IV SCH (10:10)
[2019-08-13] MEDS: PIPERACILLIN/TAZOBACTAM 3,375 MG in SODIUM CHLORIDE 0.9% 100 ML IV SCH (10:10)
[2019-08-13] MEDS: MEMANTINE 10 MG TABLET PO SCH (10:13)
[2019-08-13] MEDS: LOSARTAN 50 MG TABLET PO SCH (10:14)
[2019-08-13] MEDS: METHENAMINE HIPPURATE 1 GM TABLET PO SCH (10:14)
[2019-08-13 13:03] VITALS: BP 121/78
== END 2019-08-13 14:00 | DRG 689 ==
LOC: N.ED 11:32 → N.EDINP 13:55 → N.TELES 14:32 → N.3E 08-12 16:42
PROVIDERS: ADMIT Family Medicine; ATTEND Family Medicine